=== PATIENT | male | born 1985 | race Caucasian/White ===

== ENCOUNTER 2019-07-28 20:26 | Emergency (ER) | payer SELFPAY ==
[~2019-07-28] VITALS: Ht 172.7 cm; Wt 77.0 kg
[2019-07-28 20:42] VITALS: BP 106/60
== END 2019-07-28 21:47 | disposition left against medical advice (07) ==
LOC: ER 20:26
DX: R00.2 Palpitations (principal); R07.89 Other chest pain
CPT/HCPCS: 93005; 99283